=== PATIENT | male | born 1980 | race Caucasian/White ===

== ENCOUNTER 2016-12-06 16:44 | Emergency (ER) | payer OTHER, MEDICAID ==
[2016-12-06] MEDS ORDERED: Lidocaine 1% 30 ML SDV INJECT ONE (17:24)
[2016-12-06 17:41] VITALS: BP 151/87
--- NOTE | 2016-12-07 13:38 | ER ---
Date of Service: 12/06/2016 SUBJECTIVE: The patient presents to the emergency room with complaints of pain to the 4th digit of the left hand. The states that he slammed his finger in a car door and sustained an injury to the distal portion of the 4th digit of the left hand. The patient states that he is not experiencing any injury elsewhere. He states that his immunizations are up to date. PAST MEDICAL HISTORY: None. MEDICATIONS: None. ALLERGIES: NKDA. REVIEW OF SYSTEMS: Denies any injury elsewhere. He states he is not experiencing any numbness or tingling in the distal portion of the extremity. PHYSICAL EXAMINATION: General: This is a 36-year-old male patient, in no acute distress. Vital Signs: Blood pressure is 151/87, pulse rate is 77, temperature is 36.3, respiratory rate 16, O2 saturations 97%. Skin: Warm, pink, and dry. Musculoskeletal: The patient does have what appears to be a subungual hematoma to the proximal half of the 4th digit of the left hand. No obvious gross bony deformity noted. RADIOGRAPHIC DATA: Radiographs of the patient's finger tip were obtained. There was no evidence of any acute fracture dislocation. EMERGENCY ROOM COURSE: The patient's hand was prepped and draped in the usual sterile fashion. The base of the finger was cleansed with Betadine, and a digital block was placed using 1% lidocaine. After adequate anesthesia was obtained, a disposable cautery pen was used to trephinate the nail. A large amount of blood was removed from the nail bed, and the patient reported a rapid improvement in his discomfort. ASSESSMENT: Subungual hematoma. PLAN: The patient will be discharged. Tylenol and ibuprofen for discomfort. He is to return if there is any redness, swelling, or discharge from the area. All questions were answered. MWK: 12/07/2016 06:56:46 MODL: 12/07/2016 13:29:57 /[id number]
== END 2016-12-06 18:00 ==
LOC: VM.ED 16:44
DX: S60.142A Contusion of left ring finger with damage to nail, initial encounter (principal); W22.8XXA Striking against or struck by other objects, initial encounter
CPT/HCPCS: 11740; 64450; 73140-F3; 99283

== ENCOUNTER 2017-05-18 14:50 | Emergency (ER) | payer MEDICAID ==
[2017-05-18] MEDS ORDERED: Sodium Chloride 0.9% 10 ML Syringe FLUSH PRN (14:54)
[2017-05-18] MEDS ORDERED: HYDROmorphone 1 MG/ML Syringe IVPUSH ONE (14:58)
[2017-05-18] MEDS ORDERED: Morphine 4 MG/ML Syringe IVPUSH ONE (15:03)
[2017-05-18] MEDS ORDERED: Sodium Chloride 0.9% 1,000 ML IV ONE (15:03)
[2017-05-18] MEDS ORDERED: Ketorolac 30 MG/ML SDV IVPUSH ONE (15:03)
[2017-05-18 15:51] VITALS: BP 127/86
[2017-05-18 16:35] LABS: CHLORIDE,CL 107 mmol/L (98-107); SODIUM,NA 139 mmol/L (136-145)
[2017-05-18] MEDS ORDERED: Take Home: Ketorolac 10 MG Tab, 4 Tab Pack PO ONE (17:35)
[2017-05-18] MEDS ORDERED: Take Home: Doxycycline 100 MG Tab, 4 Tab Pack PO ONE (17:40)
--- NOTE | 2017-05-19 07:50 | ER ---
Date of Service: 05/18/2017 SUBJECTIVE: Mitchel presents to the emergency room with complaints of bilateral testicular pain. The patient states the discomfort was gradual in onset. He states he has not been experiencing any fever or chills. Denies any abdominal pain. The patient states that he has not experienced any testicular trauma and is experiencing pain equally on both the right and left testes. He states that he has not experienced any dysuria or pyuria. PAST MEDICAL HISTORY: IV drug use. MEDICATIONS: None. ALLERGIES: NKDA. REVIEW OF SYSTEMS: General: No fever or chills. HEENT: No sore throat, rhinorrhea, or congestion. Respiratory: No shortness of breath. Cardiac: No substernal chest pain. No jaw, arm, neck, or back pain. GI: No nausea, vomiting, or diarrhea. No melena, hematochezia, or hematemesis. : Please see history of present illness. He denies any hematuria, pyuria, or dysuria. No melena, hematochezia, or hematemesis. Neurologic: No fainting, blackouts, or lightheadedness. Musculoskeletal: The patient has significant lesions to both his arms and scabbing consistent with picking at his skin. 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 PHYSICAL EXAMINATION: General: This is a 37-year-old male patient, in no acute distress. Vital Signs: Blood pressure is 127/86, respiratory rate is 22, pulse rate is 79, temperature is 36.2, and O2 saturations 97%. Skin: Warm, pink, and dry. HEENT. Head is normocephalic, atraumatic. Lungs: Clear to auscultation. Heart: Regular rate and rhythm. Abdomen: Soft, nontender. There is no hepatosplenomegaly noted. There are no masses noted. Genitourinary: Both of his testes are exquisitely tender. No ecchymosis noted to the scrotum. There is some mild swelling to the scrotum and testes, but no obvious abscess noted. Remainder of his physical examination is within normal limits. LABORATORY DATA: WBCs 7.2, hemoglobin is 13.2, and platelets are 261. Chemistry; sodium is 139, potassium is 3.9, chloride is 107, bicarb is 25, BUN is 9, creatinine is 0.7, creatinine clearance is 149, GFR is greater than 60, glucose is 86, lactic acid is 0.7, calcium is 8.5, and corrected calcium is 9.22. Total bilirubin is 0.6, AST is 14, ALT is 23, and alkaline phosphatase is 47. C-reactive protein is 0.5. Urinalysis was obtained, specific gravity was 1.025, pH was 7.0, he did have 15 ketones, negative occult blood and nitrites, small bilirubin, negative leukocyte esterase, and no bacteria. Urine drug screen was positive for amphetamine, methamphetamine, MDMA, marijuana, and opiates. EMERGENCY ROOM COURSE: IV access was established. The patient was given 4 mg of morphine and 30 mg of Toradol as well as a liter of normal saline. He did report significant improvement in his discomfort. He remained stable in my care in the emergency room. ASSESSMENT: Orchitis. PLAN: I did speak with Dr. Pressley at [facility] regarding this patient. We will start him on doxycycline 100 mg twice daily for 13 days total. He was given a take-home pack of 2 doxycycline here in the emergency room. Also, did give him a short course of Toradol with instructions to take one 10 mg tablet every 4 to 6 hours as needed for pain. Ice his testicles for 10 to 15 minutes every 1 to 2 hours. He was not given any opiate pain medication due to his history of drug abuse. All questions were answered. MWK: 05/18/2017 17:55:48 MODL: 05/19/2017 00:23:47 /[id number]
== END 2017-05-18 17:55 | disposition home or self-care (01) ==
LOC: VM.ED 14:50
DX: N45.2 Orchitis (principal); F15.90 Other stimulant use, unspecified, uncomplicated; F12.90 Cannabis use, unspecified, uncomplicated; F11.90 Opioid use, unspecified, uncomplicated; F19.90 Other psychoactive substance use, unspecified, uncomplicated
CPT/HCPCS: 36415; 80053; 80305; 80349; 81001; 83605; 85025; 86140; 87040; 96365; 96366; 96375; 99283; A9270; G0480; J1885; J2270; J7030